=== PATIENT | male | born 1950 | race Caucasian/White ===

== ENCOUNTER → 2021-10-24 14:00 | Outpatient (BNVA) | payer BC, SELFPAY | PROVIDERS: Family Provider Family Medicine; PCP Family Medicine; Visit Provider Family Medicine | DX: E78.2 Mixed hyperlipidemia (principal); I10 Essential (primary) hypertension; R30.0 Dysuria; Z76.89 Persons encountering health services in other specified circumstances; F41.1 Generalized anxiety disorder; F41.0 Panic disorder [episodic paroxysmal anxiety] | CPT/HCPCS: 80053; 80061; 84153; 85025 ==

== ENCOUNTER → 2021-11-21 09:20 | Outpatient (BNVA) | payer BC, SELFPAY | PROVIDERS: Family Provider Family Medicine; PCP Family Medicine; Visit Provider Family Medicine | DX: M54.50 Low back pain, unspecified (principal); E78.2 Mixed hyperlipidemia; I10 Essential (primary) hypertension; R30.0 Dysuria | CPT/HCPCS: 81000 ==

== ENCOUNTER → 2022-11-14 08:26 | Outpatient (BNVA) | payer BC, SELFPAY | PROVIDERS: Family Provider Family Medicine; PCP Family Medicine; Visit Provider Family Medicine | DX: N40.1 Benign prostatic hyperplasia with lower urinary tract symptoms (principal); N13.8 Other obstructive and reflux uropathy; Z00.00 Encounter for general adult medical examination without abnormal findings; I10 Essential (primary) hypertension; E78.2 Mixed hyperlipidemia; F41.1 Generalized anxiety disorder; F41.0 Panic disorder [episodic paroxysmal anxiety]; Z12.5 Encounter for screening for malignant neoplasm of prostate; Z12.2 Encounter for screening for malignant neoplasm of respiratory organs; F17.219 Nicotine dependence, cigarettes, with unspecified nicotine-induced disorders; M54.50 Low back pain, unspecified | CPT/HCPCS: 80053; 80061; 83036; 85027; G0103 ==

== ENCOUNTER 2022-11-27 06:55 | Outpatient (CLI) | payer BC, SELFPAY ==
--- NOTE | 2022-11-27 07:00 | CT_ITS ---
WS: [id number] LDCT LUNG CANCER SCREENING TECHNIQUE: Noncontrast CT of the chest with coronal and sagittal reformatted images. CLINICAL INFORMATION: Lung CA screening COMPARISON: None. DLP: 78.41 mGy.cm DIvol: Mean CTDIvol: 1.50 (mGy) All CT scans at [facility] use at least one of these dose optimization techniques: automat ed exposure control; mA and/or kV adjustment per patient size (includes targeted exams where dose is matched to clinical indication); or iterative reconstruction. FINDINGS: Normal caliber thoracic aorta. Aortic calcification. Coronary calcification. No mediastinal or hilar lymphadenopathy. No axillary lymphadenopathy. Adrenal glands are normal. Incidental subpleural nodularity RIGHT upper lobe. Subsegmental atelectasis RIGHT lower lobe. Subsegm ental atelectasis in the lingula. IMPRESSION: CT/CT lung screening [id number] LUNG-RADS: 2-Benign Appearance or Behavior FOLLOW UP: 12 Month: Continue annual screening with LDCT
== END 2022-11-27 06:56 | disposition home or self-care (01) ==
LOC: RAD 06:56
PROVIDERS: Family Provider Family Medicine; PCP Family Medicine; Visit Provider Family Medicine
DX: F17.219 Nicotine dependence, cigarettes, with unspecified nicotine-induced disorders (principal); Z12.2 Encounter for screening for malignant neoplasm of respiratory organs
CPT/HCPCS: 71271

== ENCOUNTER → 2023-11-28 09:39 | Outpatient (BNVA) | payer BC, SELFPAY | PROVIDERS: Family Provider Family Medicine; PCP Family Medicine; Visit Provider Family Medicine | DX: R39.11 Hesitancy of micturition (principal) | CPT/HCPCS: 80053; 80061; 81000; 82306; 82607; 84443; G0103 ==

== ENCOUNTER 2024-02-29 07:50 | Outpatient (CLI) | payer MEDICARE, SELFPAY ==
--- NOTE | 2024-02-29 08:00 | CT_ITS ---
WS: [id number] LDCT LUNG CANCER SCREENING HISTORY: [employer] dep 46pk yr hx; screening TECHNIQUE: Axial imaging performed from the apices to 1 cm below the costophrenic angles. Coronal and sagittal reformats are submitted with axial MIP series. All CT scans at [facility] use at least one of these dose optimization techniques: automated exposure control; mA and/or kV adjustment per patient size (includes targeted exams where dose is matched to clinical indication); or iterativ e reconstruction. DLP: 82.08 mGy.cm DIvol: Mean CTDIvol: 1.50 (mGy) COMPARISON: 11/27/2022 Diagnostic quality: Satisfactory Lungs: Mild pulmonary hyperexpansion. Subsegmental atelectasis versus scar at the RIGHT lung base. No pulmonary mass or nodule. 3 mm RIGHT apical nodule. No additional nodule or mass. Heart: Normal size heart with no pericardial effusion.. Other findings: Dense coronary artery calcification along the LEFT anterior descending. Mild atherosc lerosis aorta. No mediastinal or hilar adenopathy. No hiatal hernia. No adrenal mass. CT/CT lung screening [id number] IMPRESSION: LUNG-RADS: 2-Benign Appearance or Behavior FOLLOW UP: 12 Month: Continue annual screening with LDCT OTHER FINDINGS (S MODIFIER): None.
== END 2024-02-29 07:51 | disposition home or self-care (01) ==
PROVIDERS: Family Provider Family Medicine; PCP Family Medicine; Visit Provider Family Medicine
DX: Z12.2 Encounter for screening for malignant neoplasm of respiratory organs (principal); F17.219 Nicotine dependence, cigarettes, with unspecified nicotine-induced disorders; R91.8 Other nonspecific abnormal finding of lung field; I25.10 Atherosclerotic heart disease of native coronary artery without angina pectoris; I70.0 Atherosclerosis of aorta
CPT/HCPCS: 71271

== ENCOUNTER 2024-06-20 09:14 | Outpatient (CLI) | payer MEDICARE, SELFPAY ==
--- NOTE | 2024-06-20 09:30 | USCV_ITS ---
Jamie Boyle Age: 74 Gender: M : 1950 Exam Date: 06/20/2024 09:44 Ordering Phys: Kayla New MD Technologist: [employer] Exam Location: [facility] [place] Indication: screening HISTORY: Diameter (cm) AP x Transverse x Length Velocity (cm/s) Waveform Prox Aorta: 1.60 x 2.30 x 59.40 Mid Aorta: 1.60 x 1.90 x 89.80 Distal Aorta: 1.70 x 2.40 x 71.10 Right Iliac Prox: 1.09 x 1.32 x 118.50 Left Iliac Prox: 0.92 x 1.34 x 114.00 Stent Prox Landing x x Aneurysmal Sac Max x x Lt Lat Sac Dim Rt Lat Sac Dim Stent Dist Landing x x Right Iliac Stent x x Left Iliac Stent x x Right Renal Art Left Renal Art FINDINGS: CONCLUSIONS Only mild dilatation distal abdominal aorta measuring 1.7 x 2.4cm Normal common iliac arteries Delbert An MD (Electronically Signed) Final Date: 23 Jun 2024 09:11 S
== END 2024-06-20 09:15 | disposition home or self-care (01) ==
LOC: RAD 09:16
PROVIDERS: PCP Family Medicine; Visit Provider Family Medicine
DX: Z13.6 Encounter for screening for cardiovascular disorders (principal); F17.219 Nicotine dependence, cigarettes, with unspecified nicotine-induced disorders; I77.811 Abdominal aortic ectasia
CPT/HCPCS: 76706

== ENCOUNTER → 2024-11-10 09:02 | Outpatient (BNVA) | payer MEDICARE, SELFPAY | PROVIDERS: PCP Family Medicine; Visit Provider Family Medicine | DX: I10 Essential (primary) hypertension (principal); E78.2 Mixed hyperlipidemia; R73.03 Prediabetes; M54.2 Cervicalgia; G89.29 Other chronic pain; Z11.59 Encounter for screening for other viral diseases; Z13.6 Encounter for screening for cardiovascular disorders; Z12.5 Encounter for screening for malignant neoplasm of prostate | CPT/HCPCS: 80053; 80061; 83036; 85025; 86803; G0103 ==